=== PATIENT | female | born 1985 | race Caucasian/White ===

== ENCOUNTER 2017-11-02 05:53 | Emergency (ER) | payer SELFPAY ==
[2017-11-02] MEDS ORDERED: Sodium Chloride 0.9% 2.5 ML Syringe FLUSH PRN (06:10)
[2017-11-02] MEDS ORDERED: Sodium Chloride 0.9% 10 ML Syringe FLUSH PRN (06:10)
[2017-11-02] MEDS ORDERED: Ondansetron 4 MG/2 ML SDV IVPUSH ONE (06:10)
[2017-11-02] MEDS ORDERED: Ketorolac 30 MG/ML SDV IVPUSH ONE (06:10)
[2017-11-02] MEDS ORDERED: Dicyclomine 10 MG Cap PO ONE (06:10)
[2017-11-02] MEDS ORDERED: Sodium Chloride 0.9% 1,000 ML IV ONE (06:10)
--- NOTE | 2017-11-02 06:15 | EDM.PDOC ---
<Deirdre You - Last Filed: 11/02/17 06:51> ED HPI GENERAL MEDICAL PROBLEM - General Chief Complaint: Abdominal Pain Stated Complaint: ADOMINAL PAIN Time Seen by Provider: 11/02/17 06:01 - History of Present Illness INITIAL COMMENTS - FREE TEXT/NARRATIVE: HISTORY AND PHYSICAL: History of present illness: The patient is a 32-year-old female with no significant GI history and only abdominal surgical history is of cholecystectomy and tubal ligation and presents with 3 episodes of loose stools/diarrhea that started at 12 noon yesterday followed by nausea and diffuse crampy abdominal pain that started 11 PM last evening. The patient says that ever since she had her gallbladder removed she has had loose stools so initially she didn't think anything was different but she had more frequent stools throughout the day yesterday afternoon. The stools were not black or bloody. She has not had any new foods or exotic travel. She did not take anything [id number] for his symptoms. At 11 PM she started having diffuse deep crampy abdominal pain which cannot localize right or left upper or lower abdomen areas and was associated with nausea but no vomiting. Again she did not take anything [id number] for the discomfort and she has not had any fevers chills chest pain shortness of breath or upper respiratory symptoms. She has no urinary complaints and no flank pain. Review of systems: As per history of present illness and below otherwise all systems reviewed and negative. Past medical history: As per history of present illness and as reviewed below otherwise noncontributory. Surgical history: As per history of present illness and as reviewed below otherwise noncontributory. Social history: No reported history of drug or alcohol abuse. Family history: As per history of present illness and as reviewed below otherwise noncontributory. Physical exam: General: Well-developed well-nourished female who is nontoxic and moves easily in the ED without distress. Vital signs are noted by me HEENT: Atraumatic, normocephalic, negative for conjunctival pallor or scleral icterus, mucous membranes moist, throat clear, neck supple, nontender, trachea midline. Lungs: Clear to auscultation, breath sounds equal bilaterally, chest nontender. Heart: S1S2, regular rate and rhythm no overt murmurs Abdomen: Soft, nondistended, there is no discrete tenderness on deep palpation no rebound and no guarding and there is no tympany on percussion. Negative for masses or hepatosplenomegaly. NABS. When I palpate the patient says she does feel some vague discomfort throughout the entire abdomen that there is no discrete tenderness appreciated. Pelvis: Stable nontender. Genitourinary: Deferred. Rectal: Deferred. Extremities: Atraumatic, negative for cords or calf pain. Neurovascular unremarkable. Neuro: Awake, alert, oriented. Cranial nerves II through XII unremarkable. Cerebellum unremarkable. Motor and sensory unremarkable throughout. Exam nonfocal. Diagnostics: CBC CMP amylase lipase UA abdominal x-rays Therapeutics: IV fluids Zofran Toradol Bentyl Case endorsed to Dr. Dela Cruz at 7 AM to follow-up TESTING results and disposition patient area patient is currently finishing her IV fluids and feels better after medications. We will plan on Zofran and Bentyl for home. Impression: Abdominal pain with diarrhea and nausea Definitive disposition and diagnosis as appropriate pending reevaluation and review of above. Abdomen Pain Score (Numeric/FACES): 6 - Related Data Allergies Allergy/AdvReac Type Severity Reaction Status Date / Time amoxicillin [Amoxicillin] Allergy Hives Verified 11/02/17 06:05 Home Meds: Home Meds . [No Known Home Meds] 04/17/14 [History] Past Medical History HEENT History: Reports: None Cardiovascular History: Reports: None Respiratory History: Reports: None Gastrointestinal History: Reports: None Genitourinary History: Reports: None [employer] History: Reports: Musculoskeletal History: Reports: None Neurological History: Reports: None Psychiatric History: Reports: Anxiety Endocrine/Metabolic History: Reports: None Hematologic History: Reports: None Immunologic History: Reports: None Dermatologic History: Reports: None - Infectious Disease History Infectious Disease History: Reports: None - Past Surgical History Head Surgeries/Procedures: Reports: None GI Surgical History: Reports: Cholecystectomy Female Surgical History: Reports: None Social & Family History - Family History Family Medical History: Noncontributory - Tobacco Use Smoking Status *Q: Current Every Day Smoker Years of Tobacco use: 20 Packs/Tins Daily: 0.5 - Caffeine Use Caffeine Use: Reports: Coffee - Recreational Drug Use Recreational Drug Use: No ED ROS GENERAL - Review of Systems Review Of Systems: ROS reveals no pertinent complaints other than HPI. ED EXAM, GENERAL - Physical Exam Exam: See Below (See dictation) Course - Vital Signs Last Recorded V/S: Last Vital Signs Temp 97.0 F 11/02/17 08:02 Pulse 77 11/02/17 08:02 Resp 16 11/02/17 08:02 BP 123/71 11/02/17 08:02 Pulse Ox 97 11/02/17 08:02 - Orders/Labs/Meds Orders: Active Orders 24 hr Category Date Time Status Abdomen 2V AP Flat Upright [CR] Stat Exams 11/02/17 06:10 Taken UA W/MICROSCOPIC [URIN] Stat Lab 11/02/17 06:00 Ordered Saline Lock Insert [OM.PC] Stat Oth 11/02/17 06:10 Ordered Labs: Laboratory Tests 11/02/17 11/02/17 11/02/17 Range/Units 06:00 06:18 06:18 WBC 12.06 H (4.0-11.0) K/uL RBC 4.36 (4.30-5.90) M/uL Hgb 14.0 (12.0-16.0) g/dL Hct 41.1 (36.0-46.0) % MCV 94.3 (80.0-98.0) fL MCH 32.1 H (27.0-32.0) pg MCHC 34.1 (31.0-37.0) g/dL RDW Std Deviation 45.7 (28.0-62.0) fl RDW Coeff of Jennifer 13 (11.0-15.0) % Plt Count 289 (150-400) K/uL MPV 9.80 (7.40-12.00) fL Neut % (Auto) 67.6 (48.0-80.0) % Lymph % (Auto) 21.0 (16.0-40.0) % [place] % (Auto) 4.5 (0.0-15.0) % Eos % (Auto) 6.4 (0.0-7.0) % Baso % (Auto) 0.5 (0.0-1.5) % Neut # (Auto) 8.2 H (1.4-5.7) K/uL Lymph # (Auto) 2.5 H (0.6-2.4) K/uL [place] # (Auto) 0.5 (0.0-0.8) K/uL Eos # (Auto) 0.8 H (0.0-0.7) K/uL Baso # (Auto) 0.1 (0.0-0.1) K/uL Nucleated RBC % 0.0 /100WBC Nucleated RBCs # 0 K/uL Sodium 140 (136-145) mmol/L Potassium 4.0 (3.5-5.1) mmol/L Chloride 106 (98-107) mmol/L Carbon Dioxide 22.7 (21.0-32.0) mmol/L BUN 18 (7.0-18.0) mg/dL Creatinine 0.8 (0.6-1.0) mg/dL Est Cr Clr Drug Dosing 71.84 mL/min Estimated GFR (MDRD) > 60.0 ml/min Glucose 102 (74-106) mg/dL Calcium 8.7 (8.5-10.1) mg/dL Total Bilirubin 0.3 (0.2-1.0) mg/dL AST 18 (15-37) IU/L ALT 22 (14-63) IU/L Alkaline Phosphatase 61 (46-116) U/L Total Protein 6.7 (6.4-8.2) g/dL Albumin 3.5 (3.4-5.0) g/dL Globulin 3.2 (2.0-3.5) g/dL Albumin/Globulin Ratio 1.1 L (1.3-2.8) Amylase 40 (25-115) U/L Lipase 114 (73-393) U/L Urine Color YELLOW Urine Appearance CLEAR Urine pH 6.0 (5.0-8.0) Ur Specific Valdez 1.010 (1.001-1.035) Urine Protein NEGATIVE (NEGATIVE) mg/dL Urine Glucose (UA) NEGATIVE (NEGATIVE) mg/dL Urine Ketones NEGATIVE (NEGATIVE) mg/dL Urine Occult Blood NEGATIVE (NEGATIVE) Urine Nitrite NEGATIVE (NEGATIVE) Urine Bilirubin NEGATIVE (NEGATIVE) Urine Urobilinogen 0.2 (<2.0) EU/dL Ur Leukocyte Esterase NEGATIVE (NEGATIVE) Urine RBC NONE SEEN (0-2/HPF) Urine WBC 1-2 (0-5/HPF) Ur Epithelial Cells RARE (NONE-FEW) Urine Bacteria RARE (NEGATIVE) Meds: Medications Discontinued Medications Generic Name Dose Route Start Last Admin Trade Name Freq PRN Reason Stop Dose Admin Dicyclomine HCl 20 mg 11/02/17 06:10 11/02/17 06:30 Bentyl PO 11/02/17 06:11 20 mg ONETIME ONE Administration Sodium Chloride 1,000 mls @ 999 mls/hr 11/02/17 06:10 11/02/17 06:28 Normal Saline IV 11/02/17 07:10 999 mls/hr STAT ONE Administration Ketorolac Tromethamine 30 mg 11/02/17 06:10 11/02/17 06:29 Toradol IVPUSH 11/02/17 06:11 30 mg ONETIME ONE Administration Ondansetron HCl 4 mg 11/02/17 06:10 11/02/17 06:29 Zofran IVPUSH 11/02/17 06:11 4 mg ONETIME ONE Administration Sodium Chloride 10 ml 11/02/17 06:10 11/02/17 06:31 Saline Flush FLUSH 10 ml ASDIRECTED PRN Administration Keep Vein Open Sodium Chloride 2.5 ml 11/02/17 06:10 11/02/17 06:31 Saline Flush FLUSH 2.5 ml ASDIRECTED PRN Administration Keep Vein Open Departure - Departure Disposition: Home, Self-Care 01 Condition: Good Clinical Impression: Nausea Abdominal pain Qualifiers: Abdominal location: generalized Qualified Code(s): R10.84 - Generalized abdominal pain Diarrhea Qualifiers: Diarrhea type: unspecified type Qualified Code(s): R19.7 - Diarrhea, unspecified - Discharge Information Instructions: Nausea, Adult, Abdominal Pain, Adult, [id number], Diarrhea, Adult, [id number] Referrals: PCP,None [Primary Care Provider] - Forms: ED Department Discharge Additional Instructions: The following information is given to patients seen in the emergency department who are being discharged to home. This information is to outline your options for follow-up care. We provide all patients seen in our emergency department with a follow-up referral. The need for follow-up, as well as the timing and circumstances, are variable depending upon the specifics of your emergency department visit. If you don't have a primary care physician on staff, we will provide you with a referral. We always advise you to contact your personal physician following an emergency department visit to inform them of the circumstance of the visit and for follow-up with them and/or the need for any referrals to a consulting specialist. The emergency department will also refer you to a specialist when appropriate. This referral assures that you have the opportunity for followup care with a specialist. All of these measure are taken in an effort to provide you with optimal care, which includes your followup. Under all circumstances we always encourage you to contact your private physician who remains a resource for coordinating your care. When calling for followup care, please make the office aware that this follow-up is from your recent emergency room visit. If for any reason you are refused follow-up, please contact the [facility] emergency department at and ask to speak to the emergency department charge nurse. [facility] Primary care- Internal Medicine and Family [address] [address] Please push sips of fluids such as Gatorade and water and eat bland bites of food. Please use medications as prescribed, Zofran and Bentyl, as needed and directed. Please call and schedule a follow-up appointment in the clinic and return to ER as needed as discussed. <Pham Dela Cruz - Last Filed: 11/02/17 10:18> ED HPI GENERAL MEDICAL PROBLEM - History of Present Illness INITIAL COMMENTS - FREE TEXT/NARRATIVE: Patient was signed out to me by Dr. You to check on lab results. CBC is normal chemistries are normal and urine is negative patient has improved with IV hydration and Zofran is being discharged with prescriptions written previously by Dr. You. Patient has remained stable while in the ED and is comfortable and wanting to go home at this time. Departure - Departure Time of Disposition: 07:47
[2017-11-02 07:08] LABS: CHLORIDE,CL 106 mmol/L (98-107); SODIUM,NA 140 mmol/L (136-145)
[2017-11-02 08:03] VITALS: BP 123/71
--- NOTE | 2017-11-02 16:18 | CR ---
EXAM DATE: 11/02/17 PATIENT'S AGE: 32 Patient: HEIDE ORTIZ Facility: [place], [place] Site . Site : 1985 Study: XRay Abdomen [id number]/[id number] 6:31:40 AM Ordering Physician: Avelino Gilmore Final Report: HISTORY: Lower abdominal pain for days. COMPARISON: None. FINDINGS: The bowel gas pattern is within normal. Large amount of stool. No evidence for bowel obstruction or free intraperitoneal air. Cholecystectomy clips. Dictated by Chapis Bhatt MD @ Nov 02 2017 6:35AM (Electronic Signature) Report Signed by Proxy. [facility]
== END 2017-11-02 08:03 | disposition home or self-care (01) ==
LOC: MW.ED 05:53
DX: R19.7 Diarrhea, unspecified (principal); R11.0 Nausea; R10.84 Generalized abdominal pain; F17.210 Nicotine dependence, cigarettes, uncomplicated; Z88.1 Allergy status to other antibiotic agents
CPT/HCPCS: 36415; 74019; 80053; 81001; 82150; 83690; 85025; 96361; 96374; 96375; 99284; A9270; J1885; J2405; J7040